=== PATIENT | female | born 1940 | race Caucasian/White ===

== ENCOUNTER 2020-04-18 08:04 | Day surgery (SDC) | payer MEDICARE, OTHER ==
[~2020-04-18] VITALS: Ht 167.6 cm; Wt 79.0 kg
[~2020-04-18 08:04] MED LIST: ASPI325 PO; CELE200 PO; CHONDR PO; CYAN1000 PO; DAILY MULTIVIT1 EAC2 PO; DIOVAN PO; Diovan40 MG; GLUCOS PO; METF500 PO; METO25ER PO; MSM PO; MULVITA PO; OSTEO-BIFLEX PO; PRAV20 PO; ROSU5 PO; VITAMIN D PO
[2020-04-18] MEDS ORDERED: ASPI81CH PO (09:20)
[2020-04-18] MEDS ORDERED: SYNTHROID50 MC1 PO (09:21)
[2020-04-18] MEDS ORDERED: LIOT5 PO (09:21)
--- NOTE | 2020-04-18 10:24 | NUR ---
04/18/20 Charlotte Hudson PT ESCORTED TO RESTROOM WITH SBA OF RN. PT UPDATED ON DELAY. PT RESTING COMFORTABLY IN BED, EXTRA WARM BLANKETS PROVIDED. PT DENIES NEEDS AT THIS TIME. CALL LIGHT WITHIN REACH.
--- NOTE | 2020-04-18 11:29 | NUR ---
04/18/20 1129 Calli Tipton 1MG EPI ADDED TO FIRST BAG OF LR USED FOR JOINT IRRIGATION.
== END 2020-04-18 14:09 | disposition home or self-care (01) ==
LOC: ORSCSDS 08:04
PROVIDERS: Orthopaedic Surgery
PROC: 0RBK4ZZ Excision of Left Shoulder Joint, Percutaneous Endoscopic Approach (ICD-10-PCS; principal; 2020-04-18 09:30)
PROC: 0RNK4ZZ Release Left Shoulder Joint, Percutaneous Endoscopic Approach (ICD-10-PCS; principal; 2020-04-18 09:30)
PROC: 0LS44ZZ Reposition Left Upper Arm Tendon, Percutaneous Endoscopic Approach (ICD-10-PCS; principal; 2020-04-18 09:30)
PROC: 0LQ24ZZ Repair Left Shoulder Tendon, Percutaneous Endoscopic Approach (ICD-10-PCS; principal; 2020-04-18 09:30)
DX: M75.42 Impingement syndrome of left shoulder (principal); M75.122 Complete rotator cuff tear or rupture of left shoulder, not specified as traumatic; I25.10 Atherosclerotic heart disease of native coronary artery without angina pectoris; E11.9 Type 2 diabetes mellitus without complications; E78.00 Pure hypercholesterolemia, unspecified; Z79.84 Long term (current) use of oral hypoglycemic drugs; Z79.82 Long term (current) use of aspirin; Z79.899 Other long term (current) drug therapy
CPT/HCPCS: 82947; A9270; C1713; J0171; J0690; J0735; J1100; J1885; J2250; J2405; J2704; J2795; J3010; J7120

== ENCOUNTER → 2020-11-24 | Outpatient (CLI) | payer MEDICARE, OTHER ==
[~2020-11-24] MED LIST changes: +ASPI81CH PO; +LIOT5 PO; +SYNTHROID50 MC1 PO
== END | disposition home or self-care (01) ==
LOC: LAB 14:00 → LAB SHORT 14:00
DX: N61.1 Abscess of the breast and nipple (principal)
CPT/HCPCS: 87070; 87075; 87205

== ENCOUNTER → 2020-11-28 | Outpatient (CLI) | payer MEDICARE, OTHER | END | disposition home or self-care (01) | LOC: LAB SHORT 08:02 | DX: N64.1 Fat necrosis of breast (principal) | CPT/HCPCS: 88305; 88342 ==

== ENCOUNTER → 2022-11-07 | Outpatient (CLI) | payer MEDICARE, OTHER ==
[2022-11-07 18:54] LABS: Bun/Creatinine Ratio 18.1 (12.0-20.0); Calcium, Blood 8.6 mg/dL (8.5-10.1); Creatinine, Blood 0.77 mg/dL (0.40-1.00); Potassium, Blood 3.7 mmol/L (3.5-5.5)
== END ==
LOC: LAB SHORT 15:51 → LAB 15:51
PROVIDERS: Internal Medicine
DX: I10 Essential (primary) hypertension (principal); R73.9 Hyperglycemia, unspecified
CPT/HCPCS: 36415; 80048; 83036